=== PATIENT | female | born 1985 | race Caucasian/White ===

== ENCOUNTER → 2016-09-16 | Outpatient (REF) | payer OTHER | LOC: M SFHCLERA 17:02 | PROVIDERS: ATTEND Nurse Practitioner Family | DX: K12.1 Other forms of stomatitis (principal) ==

== ENCOUNTER → 2016-10-05 | Outpatient (REF) | payer OTHER | LOC: M LAB REF 17:06 | PROVIDERS: ATTEND Physician Assistant | DX: Z13.9 Encounter for screening, unspecified (principal); N77.1 Vaginitis, vulvitis and vulvovaginitis in diseases classified elsewhere ==